=== PATIENT | male | born 1950 | race Caucasian/White ===

== ENCOUNTER 2018-08-25 09:20 | Outpatient (CLI) | payer MEDICARE, OTHER ==
--- NOTE | 2018-08-25 11:12 | ULT ---
ABDOMINAL AORTIC ULTRASOUND: Date: 08/25/18 HISTORY: Screening for abdominal aortic aneurysm, history of smoking. FINDINGS: No evidence for abdominal aortic aneurysm. The bifurcation and proximal iliac arteries are unremarkab le. No periaortic fluid collection. IMPRESSION: Mild atherosclerotic changes of the aorta. No evidence for focal aneurysm. POS: C
== END 2018-08-25 09:21 | disposition home or self-care (01) ==
LOC: NAV RAD 09:20
PROVIDERS: ATTEND Family Medicine
DX: Z13.6 Encounter for screening for cardiovascular disorders (principal); Z87.891 Personal history of nicotine dependence; I70.0 Atherosclerosis of aorta
CPT/HCPCS: 76775